=== PATIENT | female | born 1960 | race Caucasian/White ===

== ENCOUNTER 2017-06-28 10:14 | Emergency (ER) | payer MEDICAID ==
[2017-06-28 10:19] VITALS: RESP 18; O2SAT 100
[2017-06-28] MEDS ORDERED: Sodium Chloride 0.9% 1,000 ML IV ONE (10:48)
--- NOTE | 2017-06-28 10:49 | C.PDOC ---
History Of Present Illness 57 y/o female with history of Lupus and Rheumatoid arthritis presents to ED with complaints of body aches, chills and headache for 2 weeks with associated diarrhea for 3 days. Patient has not been previously evaluated by physician for symptoms and denies recent travel, vomiting, fever or any other complaints at this time. Time Seen by Provider: 06/28/17 10:29 Chief Complaint (Nursing): Flu-like Symptoms History Per: Patient History/Exam Limitations: no limitations Onset/Duration Of Symptoms: Days Current Symptoms Are (Timing): Still Present Associated Symptoms: Chills Past Medical History Reviewed: Historical Data, Nursing Documentation, Vital Signs Vital Signs: Last Vital Signs Temp 97.6 F 06/28/17 11:56 Pulse 61 06/28/17 11:56 Resp 18 06/28/17 11:56 BP 112/70 06/28/17 11:56 Pulse Ox 100 06/28/17 12:27 - Medical History PMH: HTN, Hypercholesterolemia, Rheumatoid Arthritis Surgical History: Tonsillectomy Family History: States: No Known Family Hx - Social History Hx Alcohol Use: No Hx Substance Use: No - Immunization History Hx Tetanus Toxoid Vaccination: No Hx Influenza Vaccination: No Hx Pneumococcal Vaccination: No Review Of Systems Constitutional: Positive for: Chills. Negative for: Fever Cardiovascular: Negative for: Chest Pain Respiratory: Negative for: Cough Gastrointestinal: Positive for: Diarrhea. Negative for: Nausea, Vomiting Genitourinary: Negative for: Dysuria Skin: Negative for: Rash Neurological: Positive for: Headache. Negative for: Weakness, Numbness Physical Exam - Physical Exam Appears: Non-toxic, No Acute Distress Skin: Normal Color, Warm, Dry, No Rash Head: Atraumatic, Normacephalic Eye(s): bilateral: Normal Inspection Ear(s): Bilateral: Normal Oral Mucosa: Moist Throat: Erythema (Mild), No Exudate Neck: Supple Cardiovascular: Rhythm Regular Respiratory: Normal Breath Sounds, No Rales, No Rhonchi, No Wheezing Gastrointestinal/Abdominal: Soft, No Tenderness, No Guarding, No Rebound Extremity: Normal ROM, Capillary Refill (<2 seconds) Neurological/Psych: Oriented x3 ED Course And Treatment - Laboratory Results Result Diagrams: 06/28/17 11:12 06/28/17 11:12 Lab Interpretation: No Acute Changes O2 Sat by Pulse Oximetry: 100 (RA) Pulse Ox Interpretation: Normal - Radiology CXR: Interpreted by Me CXR Interpretation: Yes: No Acute Disease Progress Note: Treated with IVF NSS and zofran. On re-evaluation lungs clear, abdomen soft. Treated with macrobid 100 mg PO Reassessment Condition: Improved Medical Decision Making Medical Decision Making: Plan: Influenza and Strep throat Test, UA, Blood work, CXR and Zofran ordered Disposition Counseled Patient/Family Regarding: Studies Performed, Diagnosis, Need For Followup, Rx Given - Disposition Referrals: [facility] [Outside] [facility] [Outside] Ryley Hawkins DO [Staff Provider] - Disposition: HOME/ ROUTINE Disposition Time: 12:30 Condition: STABLE Additional Instructions: Follow up with PMD for further evaluation Return to ED if any increase symptoms Prescriptions: Nitrofurantoin Macrocrystals [Macrobid] 1 cap PO BID #14 cap Instructions: Urinary Tract Infection in Women (DC), Viral Syndrome (ED) Forms: [employer] (Swedish) - POA Present On Arrival: None - Clinical Impression Clinical Impression: Influenza-like illness, Urinary tract infection - PA / MANUFACTURING ASSISTANT / Resident Statement / has reviewed & agrees with the documentation as recorded. - Scribe Statement The provider has reviewed the documentation as recorded by the Curt Meneses All medical record entries made by the Curt were at my direction and personally dictated by me. I have reviewed the chart and agree that the record accurately reflects my personal performance of the history, physical exam, medical decision making, and the department course for this patient. I have also personally directed, reviewed, and agree with the discharge instructions and disposition.
[2017-06-28] MEDS ORDERED: Sodium Chloride 0.9% 1,000 ML ONE (10:59)
[2017-06-28 11:15] LABS: BASO # 0.1 K/uL (0.0-0.2); BASO % 1.1 % (0.0-2.0); EOS # 0.2 K/uL (0.0-0.7); EOS % 3.1 % (0.0-4.0); HEMOGLOBIN 12.5 g/dL (11.0-16.0); LYMPH # 2.3 K/uL (1.0-4.3); LYMPH % 39.9 % (20.0-40.0); MEAN CELL VOLUME 83.5 fL (81.0-99.0); MEAN CORPUSCULAR HEMOGLOBIN 28.2 pg (27.0-31.0); MEAN CORPUSCULAR HGB CONC 33.7 g/dL (33.0-37.0); MEAN PLATELET VOLUME 8.6 fL (7.2-11.7); MONO # 0.5 K/uL (0.0-0.8); MONO % 7.8 % (0.0-10.0); NEUT # 2.8 K/uL (1.8-7.0); NEUT % 48.1 % (50.0-75.0); RBC 4.43 Mil/uL (3.80-5.20); RED CELL DISTRIBUTION WIDTH 14.2 % (11.5-14.5); WHITE BLOOD COUNT 5.8 K/uL (4.8-10.8)
--- NOTE | 2017-06-28 11:21 | RAD ---
HISTORY: SOB COMPARISON: None available. TECHNIQUE: Chest PA and lateral FINDINGS: LUNGS: No focal consolidation. Please note that chest x-ray has limited sensitivity for the detection of pulmonary masses. PLEURA: No significant pleural effusion identified. No definite pneumothorax . CARDIOVASCULAR: Heart size appears within normal limits. Atherosclerotic calcification of the aortic knob. OSSEOUS STRUCTURES: Degenerative changes of the spine. VISUALIZED UPPER ABDOMEN: Unremarkable. OTHER FINDINGS: None. IMPRESSION: No focal consolidation, significant pleural effusion, or definite pneumothorax identified.
[2017-06-28 11:35] LABS: SQUAMOUS EPITHIAL 3 /hpf (0-5); URINE BACTERIA RARE (<OCC); URINE BILIRUBIN NEGATIVE (NEGATIVE); URINE BLOOD NEGATIVE (NEGATIVE); URINE CLARITY Clear (Clear); URINE COLOR Yellow (YELLOW); URINE GLUCOSE (UA) NORMAL (Normal); URINE LEUKOCYTE ESTERASE 3+ Leu/uL (Negative); URINE NITRATE NEGATIVE (NEGATIVE); URINE PROTEIN NEGATIVE (NEGATIVE); URINE UROBILINOGEN NORMAL mg/dL (0.2-1.0)
[2017-06-28 11:40] LABS: ALB/GLOB RATIO 1.2 (1.0-2.1); ALBUMIN 4.4 g/dL (3.5-5.0); ALT/SGPT 21 U/L (9-52); AST/SGOT 24 U/L (14-36); BLOOD UREA NITROGEN 10 mg/dL (7-17); GFR AFRICAN-AMERICAN > 60; GFR NON-AFRICAN AMERICAN > 60; LIPASE 159 U/L (23-300)
[2017-06-28 11:57] VITALS: BP 112/70; PULSE 61; TEMP 97.6
== END 2017-06-28 12:41 | disposition home or self-care (01) ==
LOC: C.ER 10:14
DX: J11.1 Influenza due to unidentified influenza virus with other respiratory manifestations (principal); N39.0 Urinary tract infection, site not specified
CPT/HCPCS: 71046; 80053; 81001; 83690; 85025; 87070; 87430; 87804; 96361; 96374; 99283; J2405; J7040

== ENCOUNTER 2018-06-19 14:44 | Observation (INO) | payer MEDICARE, MEDICAID ==
--- NOTE | 2018-06-19 17:26 | C.PDOC ---
History Of Present Illness 58 y/o female wiht PMHX of CAD, Lupus, HTN, and RA was referred by PCP Dr. Farhan Alcaraz for recent intermittent chest pain and resolving URI s/p completion of Zpac. She also has associated headache and neck pain. She states the pain only last a few seconds and it's worsen with activity and relieved by rest. She describes it as sharp and rates it currently 3/10. She mentions taking unknown pain med with some relief. She mentions longstanding Cardiac history including Cardiac Cath three years ago as per patient due to "leaky valve." She was last seen by her local Data Center Project Manager 7 months ago. Time Seen by Provider: 06/19/18 16:53 Chief Complaint (Nursing): Chest Pain History Per: Patient Onset/Duration Of Symptoms: Intermittent Episodes Current Symptoms Are (Timing): Better Past Medical History Reviewed: Historical Data, Nursing Documentation, Vital Signs - Medical History PMH: CAD, HTN, Rheumatoid Arthritis Denies: Chronic Kidney Disease Other PMH: Lupus Surgical History: Tonsillectomy Other Surgeries: Cardiac Cath 2014 Family History: States: Unknown Family Hx - Social History Hx Alcohol Use: No Hx Substance Use: No - Immunization History Hx Tetanus Toxoid Vaccination: No Hx Influenza Vaccination: No Hx Pneumococcal Vaccination: No Review Of Systems Except As Marked, All Systems Reviewed And Found Negative. Constitutional: Positive for: Fever, Chills. Negative for: Sweats ENT: Positive for: Nose Congestion Cardiovascular: Positive for: Chest Pain, Palpitations Respiratory: Positive for: Cough, SOB with Excertion Gastrointestinal: Positive for: Nausea. Negative for: Vomiting Genitourinary: Negative for: Dysuria Musculoskeletal: Positive for: Neck Pain Physical Exam - Physical Exam Appears: Well, No Acute Distress Skin: Normal Color, Warm, Dry Head: Atraumatic, Normacephalic, Tenderness (slight tenderness to palpation in the occipital area) Eye(s): bilateral: Normal Inspection, PERRL, EOMI Ear(s): Bilateral: Normal Nose: Normal, No Discharge Throat: Normal Neck: Normal, Supple Lymphatic: No Adenopathy Chest: No Tenderness Cardiovascular: Rhythm Regular Respiratory: Normal Breath Sounds Gastrointestinal/Abdominal: Normal Exam, Soft Neurological/Psych: Oriented x3, Normal Speech, Normal Cognition ED Course And Treatment - Laboratory Results Result Diagrams: 06/19/18 17:46 06/19/18 17:46 ECG: Interpreted By Me ECG Rhythm: Sinus Rhythm ECG Interpretation: No Acute Changes - Other Rad CXR X-Ray: Viewed By Me, Read By Radiologist Interpretation: Accession No. : [id number]. Patient Name / ID : NARDA RAGSDALE / [id number]. Exam Date : 06/19/2018 17:39:58 ( Approved ). Study Comment : Sex / Age : F / 58Y. Creator : Sharon Perez. Dictator : Yue Velazquez MD. Metal Machine Setter : News Production Assistant : Yue Velazquez MD. Approver2 : Report Date : 06/19/2018 17:45:37. My Comment : . HISTORY: chest pain. COMPARISON: Chest x-ray performed 06/28/17. TECHNIQUE: Chest, one view. FINDINGS: Examination limited by habitus. LUNGS: No focal consolidation. Please note that chest x-ray has limited sensitivity for the detection of pulmonary masses. PLEURA: No significant pleural effusion identified. No definite pneumothorax . CARDIOVASCULAR: Heart size appears within normal limits. Ectatic aorta. Atherosclerotic calcifications present. OSSEOUS STRUCTURES: Degenerative changes. VISUALIZED UPPER ABDOMEN: Unremarkable. OTHER FINDINGS: None. IMPRESSION: No focal consolidation. Progress Note: Admit for observation. Urinalysis consistent with UTI- start Macrobid 100mg BID x 7 days. Rapid Flu negative Medical Decision Making Medical Decision Making: Discussed with patient results of labs and imaging. Admitted for 24 hours observ ation. Patient verbalized understanding. Patient's pcp is Dr. Alcaraz who admits under Dr. Toni Joyce. Case discussed with Dr. Ferraro at 7:45pm who is covering for Dr. Joyce. She will be treated with Macrobid 100mg BID x 7 days for UTI. Disposition Counseled Patient/Family Regarding: Studies Performed, Diagnosis - Disposition Disposition: HOSPITALIZED Disposition Time: 19:45 Condition: STABLE - POA Present On Arrival: None - Clinical Impression Clinical Impression: Chest pain, Urinary tract infection - PA / BOW MAKER / Resident Statement MD/DO has reviewed & agrees with the documentation as recorded.
--- NOTE | 2018-06-19 17:51 | RAD ---
HISTORY: chest pain COMPARISON: Chest x-ray performed 06/28/17 TECHNIQUE: Chest, one view. FINDINGS: Examination limited by habitus. LUNGS: No focal consolidation. Please note that chest x-ray has limited sensitivity for the detection of pulmonary masses. PLEURA: No significant pleural effusion identified. No definite pneumothorax . CARDIOVASCULAR: Heart size appears within normal limits. Ectatic aorta. Atherosclerotic calcifications present. OSSEOUS STRUCTURES: Degenerative changes. VISUALIZED UPPER ABDOMEN: Unremarkable. OTHER FINDINGS: None. IMPRESSION: No focal consolidation.
[2018-06-19 17:54] LABS: BASO % 0.6 % (0.0-2.0); EOS # 0.1 K/uL (0.0-0.7); EOS % 1.7 % (0.0-4.0); HEMOGLOBIN 13.7 g/dL (11.0-16.0); LYMPH # 3.3 K/uL (1.0-4.3); MEAN CELL VOLUME 85.8 fL (81.0-99.0); MEAN CORPUSCULAR HEMOGLOBIN 28.4 pg (27.0-31.0); MEAN CORPUSCULAR HGB CONC 33.1 g/dL (33.0-37.0); MEAN PLATELET VOLUME 8.3 fL (7.2-11.7); MONO # 0.5 K/uL (0.0-0.8); NEUT # 3.5 K/uL (1.8-7.0); NEUT % 46.7 % (50.0-75.0); RBC 4.83 Mil/uL (3.80-5.20); RED CELL DISTRIBUTION WIDTH 13.3 % (11.5-14.5); WHITE BLOOD COUNT 7.5 K/uL (4.8-10.8)
[2018-06-19 18:07] LABS: INR 1.1; PARTIAL THROMBOPLASTIN TIME 34 SECONDS (21-34); PROTHROMBIN TIME 12.1 SECONDS (9.7-12.2)
[2018-06-19 18:20] LABS: D DIMER < 200 ng/mlDDU (0-243)
[2018-06-19 18:23] LABS: SQUAMOUS EPITHIAL 7 /hpf (0-5); URINE BACTERIA RARE (<OCC); URINE BILIRUBIN NEGATIVE (NEGATIVE); URINE BLOOD NEGATIVE (NEGATIVE); URINE CLARITY Hazy (Clear); URINE COLOR Yellow (YELLOW); URINE GLUCOSE (UA) NORMAL (Normal); URINE LEUKOCYTE ESTERASE 3+ Leu/uL (Negative); URINE PROTEIN NEGATIVE (NEGATIVE)
[2018-06-19 18:34] LABS: B-TYPE NATRIURETIC PEPTIDE 27.7 pg/mL (0-900)
[2018-06-19 18:41] LABS: ALB/GLOB RATIO 1.4 (1.0-2.1); ALBUMIN 4.8 g/dL (3.5-5.0); ALT/SGPT 19 U/L (9-52); AST/SGOT 25 U/L (14-36); BLOOD UREA NITROGEN 15 mg/dL (7-17); CALCIUM 9.2 mg/dl (8.6-10.4); GFR NON-AFRICAN AMERICAN > 60
[2018-06-19] MEDS ORDERED: Tmp-Smz 800 mg-160 mg DS Tab PO STA (20:13)
[2018-06-19] MEDS ORDERED: Tmp-Smz 800 mg-160 mg DS Tab ONE (21:33)
[2018-06-20] MEDS: Enoxaparin 40 mg Syringe SC SCH (09:18)
--- NOTE | 2018-06-20 13:43 | CP.PCM.HP ---
History of Present Illness - History of Present Illness History of Present Illness: 58 y/o female wiht PMHX of CAD, Lupus, HTN, and RA was referred by PCP Dr. Farhan Alcaraz for recent intermittent chest pain and resolving URI s/p completion of Zpak. She also has associated headache and neck pain. She states the pain only last a few seconds and it's worsen with activity and relieved by rest. She describes it as sharp and rates it currently 3/10. She mentions taking unknown pain med with some relief. She mentions longstanding Cardiac history including Cardiac Cath three years ago as per patient due to "leaky valve." She was last seen by her local Commodity Management Specialist 7 months ago. Present on Admission - Present on Admission Any Indicators Present on Admission: No History of DVT/PE: No History of Uncontrolled Diabetes: No Urinary Catheter: No Decubitus Ulcer Present: No Review of Systems - Review of Systems All systems: reviewed and no additional remarkable complaints except (As mentioned in HPI) Past Patient History - Infectious Disease Hx of Infectious Diseases: None - Past Social History Smoking Status: Never Smoked - CARDIAC Hx Hypertension: Yes - PULMONARY Hx Respiratory Disorders: No - NEUROLOGICAL Hx Neurological Disorder: Yes Hx Dizziness: Yes Hx Vertigo: Yes Other/Comment: treated for vertigo - HEENT Hx HEENT Problems: No - RENAL Hx Chronic Kidney Disease: No - ENDOCRINE/METABOLIC Hx Endocrine Disorders: Yes Hx Systemic Lupus Erythematosus: Yes Other/Comment: THYROID TUMOR - HEMATOLOGICAL/ONCOLOGICAL Hx Blood Disorders: No - INTEGUMENTARY Hx Dermatological Problems: No - MUSCULOSKELETAL/RHEUMATOLOGICAL Hx Rheumatoid Arthritis: Yes - GASTROINTESTINAL Hx Gastrointestinal Disorders: No - GENITOURINARY/GYNECOLOGICAL Hx Genitourinary Disorders: No - PSYCHIATRIC Hx Substance Use: No - SURGICAL HISTORY Hx Tonsillectomy: Yes - ANESTHESIA Hx Anesthesia: Yes Hx Anesthesia Reactions: No Meds Allergies/Adverse Reactions: Allergies Allergy/AdvReac Type Severity Reaction Status Date / Time ibuprofen Allergy Intermediate RASH Verified 10/21/17 21:44 Physical Exam - Head Exam Head Exam: NORMAL INSPECTION - Eye Exam Eye Exam: Normal appearance - ENT Exam ENT Exam: Mucous Membranes Moist - Respiratory Exam Respiratory Exam: Clear to Auscultation Bilateral - Cardiovascular Exam Cardiovascular Exam: REGULAR RHYTHM, +S1, +S2 - GI/Abdominal Exam GI & Abdominal Exam: Normal Bowel Sounds, Soft - Extremities Exam Extremities exam: Positive for: normal inspection Results - Vital Signs Recent Vital Signs: Last Vital Signs Temp 98.4 F 06/20/18 08:31 Pulse 81 06/20/18 13:20 Resp 18 06/20/18 13:20 BP 119/89 06/20/18 13:20 Pulse Ox 98 06/20/18 13:20 - Labs Result Diagrams: 06/19/18 17:46 06/19/18 17:46 Labs: Laboratory Results - last 24 hr 06/19/18 06/19/18 06/19/18 17:46 17:46 17:46 WBC 7.5 RBC 4.83 Hgb 13.7 Hct 41.5 MCV 85.8 D MCH 28.4 MCHC 33.1 RDW 13.3 Plt Count 341 MPV 8.3 Neut % (Auto) 46.7 L Lymph % (Auto) 44.0 H [place] % (Auto) 7.0 Eos % (Auto) 1.7 Baso % (Auto) 0.6 Neut # (Auto) 3.5 Lymph # (Auto) 3.3 [place] # (Auto) 0.5 Eos # (Auto) 0.1 Baso # (Auto) 0.0 PT 12.1 INR 1.1 APTT 34 D-Dimer, Quantitative < 200 Sodium 137 Potassium 3.9 Chloride 99 Carbon Dioxide 27 Anion Gap 15 BUN 15 Creatinine 0.8 Est GFR ( Amer) > 60 Est GFR (Non-Af Amer) > 60 Random Glucose 97 Calcium 9.2 Total Bilirubin 0.6 AST 25 ALT 19 Alkaline Phosphatase 100 Troponin I < 0.0120 NT-Pro-B Natriuret Pep 27.7 Total Protein 8.2 Albumin 4.8 Globulin 3.4 Albumin/Globulin Ratio 1.4 Urine Color Urine Clarity Urine pH Ur Specific [place] Urine Protein Urine Glucose (UA) Urine Ketones Urine Blood Urine Nitrate Urine Bilirubin Urine Urobilinogen Ur Leukocyte Esterase Urine WBC (Auto) Urine RBC (Auto) Ur Squamous Epith Cells Urine Bacteria Influenza Typ A,B (EIA) 06/19/18 06/19/18 06/20/18 18:08 20:54 00:19 WBC RBC Hgb Hct MCV MCH MCHC RDW Plt Count MPV Neut % (Auto) Lymph % (Auto) [place] % (Auto) Eos % (Auto) Baso % (Auto) Neut # (Auto) Lymph # (Auto) [place] # (Auto) Eos # (Auto) Baso # (Auto) PT INR APTT D-Dimer, Quantitative Sodium Potassium Chloride Carbon Dioxide Anion Gap BUN Creatinine Est GFR ( Amer) Est GFR (Non-Af Amer) Random Glucose Calcium Total Bilirubin AST ALT Alkaline Phosphatase Troponin I < 0.0120 NT-Pro-B Natriuret Pep Total Protein Albumin Globulin Albumin/Globulin Ratio Urine Color Yellow Urine Clarity Hazy Urine pH 5.0 Ur Specific [place] 1.021 Urine Protein Negative Urine Glucose (UA) Normal Urine Ketones Trace Urine Blood Negative Urine Nitrate Negative Urine Bilirubin Negative Urine Urobilinogen 2.0 H Ur Leukocyte Esterase 3+ H Urine WBC (Auto) 20 H Urine RBC (Auto) 2 Ur Squamous Epith Cells 7 H Urine Bacteria Rare Influenza Typ A,B (EIA) Negative for flu a/b 06/20/18 06:37 WBC RBC Hgb Hct MCV MCH MCHC RDW Plt Count MPV Neut % (Auto) Lymph % (Auto) [place] % (Auto) Eos % (Auto) Baso % (Auto) Neut # (Auto) Lymph # (Auto) [place] # (Auto) Eos # (Auto) Baso # (Auto) PT INR APTT D-Dimer, Quantitative Sodium Potassium Chloride Carbon Dioxide Anion Gap BUN Creatinine Est GFR ( Amer) Est GFR (Non-Af Amer) Random Glucose Calcium Total Bilirubin AST ALT Alkaline Phosphatase Troponin I < 0.0120 NT-Pro-B Natriuret Pep Total Protein Albumin Globulin Albumin/Globulin Ratio Urine Color Urine Clarity Urine pH Ur Specific [place] Urine Protein Urine Glucose (UA) Urine Ketones Urine Blood Urine Nitrate Urine Bilirubin Urine Urobilinogen Ur Leukocyte Esterase Urine WBC (Auto) Urine RBC (Auto) Ur Squamous Epith Cells Urine Bacteria Influenza Typ A,B (EIA) Assessment & Plan (1) Lupus Status: Acute (2) Chest pain Status: Acute (3) HTN (hypertension) Status: Acute (4) Urinary tract infection Status: Acute - Assessment and Plan (Free Text) Plan: Cardiology consult 2D echo Start IV Cipro Urine cultures Aspirin/Plavix Amlodipine 10 mg daily Hydrochloride thiazide DVT/GI prophylaxis
[2018-06-20] MEDS ORDERED: Oxycodone/Acetaminophen 5/325 mg Tab PO ONE (13:44)
[2018-06-20] MEDS ORDERED: Oxycodone/Acetaminophen 5/325 mg Tab ONE (14:01)
[2018-06-20] MEDS: Ciprofloxacin 400mg/200ml D5W 400 MG/200 ML BAG IVPB SCH (14:33)
[2018-06-20 15:35] VITALS: RESP 20
--- NOTE | 2018-06-20 18:07 | CP.PCM.CON ---
History of Present Illness - History of Present Illness History of Present Illness: 58 y/o female wiht PMHX of CAD, Lupus, HTN, and RA was referred by PCP Dr. Farhan Alcaraz for recent intermittent chest pain and resolving URI s/p completion of Zpac. She also has associated headache and neck pain. She states the pain only last a few seconds and it's worsen with activity and relieved by rest. She describes it as sharp and rates it currently 3/10. She mentions taking unknown pain med with some relief. She mentions longstanding Cardiac history including Cardiac Cath three years ago as per patient due to "leaky valve." She was last seen by her local Nnp 7 months ago. She has followed up with my partner recent Dr. Hsu in past 02/2017. currently no CAD or CHF sx's No fevers, chills, N/V Past Patient History - Infectious Disease Hx of Infectious Diseases: None - Past Social History Smoking Status: Never Smoked - CARDIAC Hx Hypertension: Yes - PULMONARY Hx Respiratory Disorders: No - NEUROLOGICAL Hx Neurological Disorder: Yes Hx Dizziness: Yes Hx Vertigo: Yes Other/Comment: treated for vertigo - HEENT Hx HEENT Problems: No - RENAL Hx Chronic Kidney Disease: No - ENDOCRINE/METABOLIC Hx Endocrine Disorders: Yes Hx Systemic Lupus Erythematosus: Yes Other/Comment: THYROID TUMOR - HEMATOLOGICAL/ONCOLOGICAL Hx Blood Disorders: No - INTEGUMENTARY Hx Dermatological Problems: No - MUSCULOSKELETAL/RHEUMATOLOGICAL Hx Rheumatoid Arthritis: Yes - GASTROINTESTINAL Hx Gastrointestinal Disorders: No - GENITOURINARY/GYNECOLOGICAL Hx Genitourinary Disorders: No - PSYCHIATRIC Hx Substance Use: No - SURGICAL HISTORY Hx Tonsillectomy: Yes - ANESTHESIA Hx Anesthesia: Yes Hx Anesthesia Reactions: No Meds Allergies/Adverse Reactions: Allergies Allergy/AdvReac Type Severity Reaction Status Date / Time ibuprofen Allergy Intermediate RASH Verified 10/21/17 21:44 - Medications Medications: Current Medications Amlodipine Besylate (Norvasc) 10 mg PO DAILY [facility] Last Admin: 06/20/18 09:18 Dose: 10 mg Clopidogrel Bisulfate (Plavix) 75 mg PO DAILY [facility] Last Admin: 06/20/18 09:18 Dose: 75 mg Enoxaparin Sodium (Lovenox) 40 mg SC DAILY [facility] Last Admin: 06/20/18 09:18 Dose: 40 mg Gabapentin (Neurontin) 400 mg PO DAILY [facility] Last Admin: 06/20/18 09:18 Dose: 400 mg Hydrochlorothiazide (Microzide) 12.5 mg PO DAILY [facility] Last Admin: 06/20/18 09:18 Dose: 12.5 mg Ciprofloxacin (Cipro 400mg/200ml Dsw) 400 mg in 200 mls @ 133 mls/hr IVPB Q12H [facility]; Protocol Last Admin: 06/20/18 14:33 Dose: 133 mls/hr Physical Exam - Constitutional Appears: No Acute Distress - Head Exam Head Exam: ATRAUMATIC, NORMAL INSPECTION, NORMOCEPHALIC - Eye Exam Eye Exam: EOMI, Normal appearance. absent: Scleral icterus - ENT Exam ENT Exam: Mucous Membranes Moist, Normal Exam, Normal Oropharynx - Neck Exam Neck exam: Positive for: Normal Inspection - Respiratory Exam Respiratory Exam: Clear to Auscultation Bilateral, NORMAL BREATHING PATTERN. absent: Rhonchi, Wheezes - Cardiovascular Exam Cardiovascular Exam: REGULAR RHYTHM, +S1, +S2. absent: Systolic Murmur - GI/Abdominal Exam GI & Abdominal Exam: Normal Bowel Sounds, Soft. absent: Tenderness - Extremities Exam Extremities exam: Positive for: normal inspection, pedal pulses present. Negative for: calf tenderness, pedal edema, tenderness - Back Exam Back exam: absent: CVA tenderness (L), CVA tenderness (R) - Neurological Exam Neurological exam: Alert, Oriented x3 - Psychiatric Exam Psychiatric exam: Normal Affect, Normal Mood - Skin Skin Exam: Normal Color, Warm Results - Vital Signs Recent Vital Signs: Last Vital Signs Temp 98.2 F 06/20/18 15:35 Pulse 66 06/20/18 15:35 Resp 20 06/20/18 15:35 BP 109/72 06/20/18 15:35 Pulse Ox 97 06/20/18 15:35 - Labs Result Diagrams: 06/19/18 17:46 06/19/18 17:46 Labs: Laboratory Results - last 24 hr 06/19/18 06/19/18 06/19/18 17:46 17:46 18:08 PT 12.1 INR 1.1 APTT 34 D-Dimer, Quantitative < 200 Sodium 137 Potassium 3.9 Chloride 99 Carbon Dioxide 27 Anion Gap 15 BUN 15 Creatinine 0.8 Est GFR ( Amer) > 60 Est GFR (Non-Af Amer) > 60 Random Glucose 97 Calcium 9.2 Total Bilirubin 0.6 AST 25 ALT 19 Alkaline Phosphatase 100 Troponin I < 0.0120 NT-Pro-B Natriuret Pep 27.7 Total Protein 8.2 Albumin 4.8 Globulin 3.4 Albumin/Globulin Ratio 1.4 Urine Color Yellow Urine Clarity Hazy Urine pH 5.0 Ur Specific [place] 1.021 Urine Protein Negative Urine Glucose (UA) Normal Urine Ketones Trace Urine Blood Negative Urine Nitrate Negative Urine Bilirubin Negative Urine Urobilinogen 2.0 H Ur Leukocyte Esterase 3+ H Urine WBC (Auto) 20 H Urine RBC (Auto) 2 Ur Squamous Epith Cells 7 H Urine Bacteria Rare Influenza Typ A,B (EIA) 06/19/18 06/20/18 06/20/18 20:54 00:19 06:37 PT INR APTT D-Dimer, Quantitative Sodium Potassium Chloride Carbon Dioxide Anion Gap BUN Creatinine Est GFR ( Amer) Est GFR (Non-Af Amer) Random Glucose Calcium Total Bilirubin AST ALT Alkaline Phosphatase Troponin I < 0.0120 < 0.0120 NT-Pro-B Natriuret Pep Total Protein Albumin Globulin Albumin/Globulin Ratio Urine Color Urine Clarity Urine pH Ur Specific [place] Urine Protein Urine Glucose (UA) Urine Ketones Urine Blood Urine Nitrate Urine Bilirubin Urine Urobilinogen Ur Leukocyte Esterase Urine WBC (Auto) Urine RBC (Auto) Ur Squamous Epith Cells Urine Bacteria Influenza Typ A,B (EIA) Negative for flu a/b - EKG Data EKG Interpreted by: Myself Rate: Normal - Imaging and Cardiology Chest x-ray Status: Image reviewed by me Assessment & Plan - Assessment and Plan (Free Text) Assessment: 58-year-old female with history of lupus, rheumatoid arthritis, hypertension in addition there is mention of history of cardiac [place] three years ago although details are unclear. I have reviewed the EKG which shows normal sinus rhythm without acute ischemic changes. I have also reviewed the echo which was done today June 20, 2017 what shows normal left ventricular systolic function and wall motion. there is grade one diastolic dysfunction. no significant valvular regurgitation is noted, pulmonary pressures are normal. right ventricular function is normal. The mitral valve has a rheumatic appearance however there is no evidence for mitral stenosis, prolapse or regurgitation. Troponins are negative for acute coronary syndrome, renal function is normal. U/A is suspicious for UTI Plan: cont Plavix no need for dual antiplatelets suggest statin therapy Patient does not show any evidence of UA or ACS There is no HF sx's suggest ok to d/c and f/u with Dr. Hsu as outpatient. Cont all non-cardiac meds as prescribed. - Date & Time Date: 06/21/18 Time: 12:52
--- NOTE | 2018-06-21 01:36 | CARD ---
APPROVED REPORT Date of service: 06/20/2018 EXAM: Two-dimensional and M-mode echocardiogram with Doppler and color Doppler. 2D DIMENSIONS IVSd1.0 (0.7-1.1cm)LVDd3.1 (3.9-5.9cm) PWd0.9 (0.7-1.1cm)LA [id number] (18-58mL) LVDs2.4 (2.5-4.0cm)FS (%) 23.2 % LVEF (%)47.9 (>50%)LVEF (Ashraf's)69.60 % M-Mode DIMENSIONS Left Atrium (MM)3.10 (2.5-4.0cm)IVSd1.01 (0.7-1.1cm) Aortic Root3.24 (2.2-3.7cm)LVDd4.74 (4.0-5.6cm) Aortic Cusp Exc.1.89 (1.5-2.0cm)PWd0.80 (0.7-1.1cm) FS (%) 26 %LVDs3.51 (2.0-3.8cm) LVEF (%)51 (>50%) Mitral Valve MV E Lipdmcbx28.5cm/sMV A Nfxeduvo77.8cm/sE/A ratio0.7 TDI Lateral E' Peak V11.19cm/sMedial E' Peak V5.38cm/sE/Lateral E'4.2 E/Medial E'8.8 LEFT VENTRICLE The left ventricle is normal size. There is normal left ventricular wall thickness. Left ventricle systolic function is normal. The Ejection Fraction is >70%. There is normal LV segmental wall motion. Tissue Doppler imaging reveals abnormal left ventricular diastolic dysfunction. RIGHT VENTRICLE The right ventricle is normal size. There is normal right ventricular wall thickness. The right ventricular systolic function is normal. ATRIA The left atrium size is normal. The right atrium size is normal. The interatrial septum is intact with no evidence for an atrial septal defect. AORTIC VALVE The aortic valve is normal in structure. There is trace aortic regurgitation. There is no aortic valvular stenosis. MITRAL VALVE The mitral valve is normal in structure. There is no evidence of mitral valve prolapse. There is no mitral valve stenosis. Mitral regurgitation is mild. TRICUSPID VALVE The tricuspid valve is normal in structure. There is no tricuspid valve regurgitation noted. There is no tricuspid valve prolapse or vegetation. There is no tricuspid valve stenosis. PULMONIC VALVE The pulmonic valve is not well visualized. There is no pulmonic valvular regurgitation. GREAT VESSELS The aortic root is normal in size. PERICARDIAL EFFUSION There is no significant pericardial effusion. <Conclusion> Left ventricle systolic function is normal. The Ejection Fraction is >70%. Diastolic dysfunction. There is trace aortic regurgitation. Mitral regurgitation is mild. There is no tricuspid valve regurgitation noted. There is no pulmonary hypertension. There is no pulmonic valvular regurgitation.
[2018-06-21] MEDS: Ciprofloxacin 400mg/200ml D5W 400 MG/200 ML BAG IVPB SCH (02:49)
[2018-06-21 07:32] VITALS: BP 112/69; PULSE 71; TEMP 97.6; O2SAT 97
[2018-06-21] MEDS: Enoxaparin 40 mg Syringe SC SCH (09:14)
[2018-06-21] MEDS ORDERED: Influenza Vaccine 60 mcg/0.5 mL SYR (4YR UP) IM ONE (10:00)
--- NOTE | 2018-06-21 13:06 | CP.PCM.PN ---
Subjective - Date & Time of Evaluation Date of Evaluation: 06/21/18 Time of Evaluation: 13:06 Objective - Vital Signs/Intake and Output Vital Signs (last 24 hours): Temp Pulse Resp BP Pulse Ox 97.6 F 71 20 112/69 97 06/21/18 07:29 06/21/18 07:29 06/21/18 07:29 06/21/18 07:29 06/21/18 07:29 - Medications Medications: Current Medications Acetaminophen (Tylenol 325mg Tab) 650 mg PO Q6 PRN PRN Reason: Headache Last Admin: 06/21/18 12:42 Dose: 650 mg Amlodipine Besylate (Norvasc) 10 mg PO DAILY [facility] Last Admin: 06/21/18 09:13 Dose: 10 mg Clopidogrel Bisulfate (Plavix) 75 mg PO DAILY [facility] Last Admin: 06/21/18 09:13 Dose: 75 mg Enoxaparin Sodium (Lovenox) 40 mg SC DAILY [facility] Last Admin: 06/21/18 09:14 Dose: 40 mg Gabapentin (Neurontin) 400 mg PO DAILY [facility] Last Admin: 06/21/18 09:13 Dose: 400 mg Hydrochlorothiazide (Microzide) 12.5 mg PO DAILY [facility] Last Admin: 06/21/18 09:13 Dose: 12.5 mg Ciprofloxacin (Cipro 400mg/200ml Dsw) 400 mg in 200 mls @ 133 mls/hr IVPB Q12H [facility]; Protocol Last Admin: 06/21/18 02:49 Dose: 133 mls/hr Pneumococcal Polyvalent Vaccine (Pneumovax 23 Vaccine) 0.5 ml SC .ONCE ONE Stop: 06/22/18 10:01 - Labs Labs: 06/19/18 17:46 06/19/18 17:46 PT 12.1 SECONDS (9.7-12.2) 06/19/18 17:46 INR 1.1 06/19/18 17:46 APTT 34 SECONDS (21-34) 06/19/18 17:46 Assessment and Plan - Assessment and Plan (Free Text) Assessment: FOLLOW UP WITH DR LYLE IN HIS OFFICE ------CALL FOR APPOINTMENT FOLLOW UP WITH DR JACK IN HIS OFFICE ----CALL FOR APPOINTMENT CONTINUE HOME MEDICATION NEW PRESCRIPTION GIVEN CIPRO 500 MG PO Q12H FOR 5 DAYS ACTIIVITY TOLERATED CALL [facility] OR GO TO THE EMERGENCY ROOM IF SYMPTOM RETURN OR WORSENING
[2018-06-21] MEDS ORDERED: Pneumococcal 23-Valent Vaccine SC ONE (13:30)
--- NOTE | 2018-06-21 13:41 | CP.PCM.DIS ---
Provider - Provider Date of Admission: 06/19/18 20:10 Attending physician: John Dalton MD Consults: 06/20/18 07:00 Physician Consult Routine Comment: Consulting Provider: Supa Hsu Consulting Physician: Supa Hsu Reason for Consult: chest pain Diagnosis - Discharge Diagnosis (1) Lupus Status: Acute (2) Chest pain Status: Acute (3) HTN (hypertension) Status: Acute (4) Urinary tract infection Status: Acute Hospital Course - Lab Results Lab Results: Micro Results 06/19/18 21:11 Urine Random Urine Culture - Final No Growth (<1,000 CFU/ML) Most Recent Lab Values WBC 7.5 K/uL (4.8-10.8) 06/19/18 17:46 RBC 4.83 Mil/uL (3.80-5.20) 06/19/18 17:46 Hgb 13.7 g/dL (11.0-16.0) 06/19/18 17:46 Hct 41.5 % (34.0-47.0) 06/19/18 17:46 MCV 85.8 fL (81.0-99.0) D 06/19/18 17:46 MCH 28.4 pg (27.0-31.0) 06/19/18 17:46 MCHC 33.1 g/dL (33.0-37.0) 06/19/18 17:46 RDW 13.3 % (11.5-14.5) 06/19/18 17:46 Plt Count 341 K/uL (130-400) 06/19/18 17:46 MPV 8.3 fL (7.2-11.7) 06/19/18 17:46 Neut % (Auto) 46.7 % (50.0-75.0) L 06/19/18 17:46 Lymph % (Auto) 44.0 % (20.0-40.0) H 06/19/18 17:46 Mckean % (Auto) 7.0 % (0.0-10.0) 06/19/18 17:46 Eos % (Auto) 1.7 % (0.0-4.0) 06/19/18 17:46 Baso % (Auto) 0.6 % (0.0-2.0) 06/19/18 17:46 Neut # (Auto) 3.5 K/uL (1.8-7.0) 06/19/18 17:46 Lymph # (Auto) 3.3 K/uL (1.0-4.3) 06/19/18 17:46 Mckean # (Auto) 0.5 K/uL (0.0-0.8) 06/19/18 17:46 Eos # (Auto) 0.1 K/uL (0.0-0.7) 06/19/18 17:46 Baso # (Auto) 0.0 K/uL (0.0-0.2) 06/19/18 17:46 PT 12.1 SECONDS (9.7-12.2) 06/19/18 17:46 INR 1.1 06/19/18 17:46 APTT 34 SECONDS (21-34) 06/19/18 17:46 D-Dimer, Quantitative < 200 ng/mlDDU (0-243) 06/19/18 17:46 Sodium 137 mmol/L (132-148) 06/19/18 17:46 Potassium 3.9 mmol/L (3.6-5.2) 06/19/18 17:46 Chloride 99 mmol/L (98-107) 06/19/18 17:46 Carbon Dioxide 27 mmol/L (22-30) 06/19/18 17:46 Anion Gap 15 (10-20) 06/19/18 17:46 BUN 15 mg/dL (7-17) 06/19/18 17:46 Creatinine 0.8 mg/dL (0.7-1.2) 06/19/18 17:46 Est GFR ( Amer) > 60 06/19/18 17:46 Est GFR (Non-Af Amer) > 60 06/19/18 17:46 Random Glucose 97 mg/dL (65-105) 06/19/18 17:46 Calcium 9.2 mg/dl (8.6-10.4) 06/19/18 17:46 Total Bilirubin 0.6 mg/dL (0.2-1.3) 06/19/18 17:46 AST 25 U/L (14-36) 06/19/18 17:46 ALT 19 U/L (9-52) 06/19/18 17:46 Alkaline Phosphatase 100 U/L (38-126) 06/19/18 17:46 Troponin I < 0.0120 ng/mL (0.00-0.120) 06/20/18 06:37 NT-Pro-B Natriuret Pep 27.7 pg/mL (0-900) 06/19/18 17:46 Total Protein 8.2 g/dL (6.3-8.3) 06/19/18 17:46 Albumin 4.8 g/dL (3.5-5.0) 06/19/18 17:46 Globulin 3.4 gm/dL (2.2-3.9) 06/19/18 17:46 Albumin/Globulin Ratio 1.4 (1.0-2.1) 06/19/18 17:46 Urine Color Yellow (YELLOW) 06/19/18 18:08 Urine Clarity Hazy (Clear) 06/19/18 18:08 Urine pH 5.0 (5.0-8.0) 06/19/18 18:08 Ur Specific [place] 1.021 (1.003-1.030) 06/19/18 18:08 Urine Protein Negative mg/dL (NEGATIVE) 06/19/18 18:08 Urine Glucose (UA) Normal mg/dL (Normal) 06/19/18 18:08 Urine Ketones Trace mg/dL (NEGATIVE) 06/19/18 18:08 Urine Blood Negative (NEGATIVE) 06/19/18 18:08 Urine Nitrate Negative (NEGATIVE) 06/19/18 18:08 Urine Bilirubin Negative (NEGATIVE) 06/19/18 18:08 Urine Urobilinogen 2.0 mg/dL (0.2-1.0) H 06/19/18 18:08 Ur Leukocyte Esterase 3+ Michael/uL (Negative) H 06/19/18 18:08 Urine WBC (Auto) 20 /hpf (0-5) H 06/19/18 18:08 Urine RBC (Auto) 2 /hpf (0-3) 06/19/18 18:08 Ur Squamous Epith Cells 7 /hpf (0-5) H 06/19/18 18:08 Urine Bacteria Rare (<OCC) 06/19/18 18:08 Influenza Typ A,B (EIA) Negative for flu a/b (NEGATIVE) 06/19/18 20:54 Discharge Exam - Head Exam Head Exam: ATRAUMATIC, NORMAL INSPECTION, NORMOCEPHALIC Discharge Plan - Discharge Medications Prescriptions: Ciprofloxacin [Cipro] 500 mg PO Q12H 5 Days tab - Follow Up Plan Condition: STABLE Disposition: HOME/ ROUTINE Instructions: Ciprofloxacin (Systemic), Chest Pain (DC), Urinary Tract Infection in Women (DC) Additional Instructions: FOLLOW UP WITH DR LYLE IN HIS OFFICE ------CALL FOR APPOINTMENT FOLLOW UP WITH DR HSU IN HIS OFFICE ----CALL FOR APPOINTMENT CONTINUE HOME MEDICATION NEW PRESCRIPTION GIVEN CIPRO 500 MG PO Q12H FOR 5 DAYS ACTIIVITY TOLERATED CALL PMD OR GO TO THE EMERGENCY ROOM IF SYMPTOM RETURN OR WORSENING Referrals: John Dalton MD [Staff Provider] - Supa Hsu MD [Staff Provider] - Zoie Joyce MD [Staff Provider] -
[2018-06-22] MEDS ORDERED: Pneumococcal 23-Valent Vaccine SC ONE (10:00)
--- NOTE | 2018-06-23 10:21 | CARD ---
APPROVED REPORT Date of service: 06/19/2018 EKG Measurement Heart [id number] <Conclusion> Normal sinus rhythm Normal ECG
--- NOTE | 2018-06-23 17:43 | CARD ---
APPROVED REPORT Date of service: 06/20/2018 EKG Measurement Heart [id number] <Conclusion> Normal sinus rhythm Normal ECG
--- NOTE | 2018-06-23 17:49 | CARD ---
APPROVED REPORT Date of service: 06/20/2018 EKG Measurement Heart [id number] <Conclusion> Normal sinus rhythm Normal ECG
== END 2018-06-21 13:45 | disposition home or self-care (01) ==
LOC: C.ER 14:44 → C.9E 20:10 → C.5S 06-20 15:52 → C.9E 06-20 15:54 → C.3T 06-20 17:26
PROVIDERS: ADMIT Internal Medicine Critical Care Medicine; ATTEND Internal Medicine Critical Care Medicine
DX: N39.0 Urinary tract infection, site not specified (principal); R07.9 Chest pain, unspecified; I10 Essential (primary) hypertension; I25.10 Atherosclerotic heart disease of native coronary artery without angina pectoris; I77.819 Aortic ectasia, unspecified site; M06.9 Rheumatoid arthritis, unspecified; M32.9 Systemic lupus erythematosus, unspecified
CPT/HCPCS: 71045; 80053; 81001; 83880; 84484; 85025; 85378; 85610; 85730; 87040; 87086; 87804; 90674; 90732; 93005; 93306; 96365; 96366; 96372; 99285; G0008; G0009; G0378; J0744; J1650